=== PATIENT | female | born 1990 | race Caucasian/White ===

== ENCOUNTER → 2016-09-12 | Outpatient (CLI) | payer BC ==
[~2016-09-12] MED LIST: APRI28 PO; PRENTAB26 PO
== END | disposition home or self-care (01) ==
LOC: C.LAB1850 07:13
PROVIDERS: ATTEND Obstetrics & Gynecology
DX: O28.1 Abnormal biochemical finding on antenatal screening of mother (principal); Z3A.00 Weeks of gestation of pregnancy not specified

== ENCOUNTER → 2016-10-19 | Outpatient (CLI) | payer BC ==
[2016-10-19 13:36] LABS: BASO % 0.2 %; BASO ABS # 0.03 K/uL (0-0.2); COMPLETE YES; EOS % 0.5 %; HEMATOCRIT 32.9 % (37-47); IG% 0.4 %; LYMPH % 14.5 %; LYMPH ABS # 1.76 K/uL (1.2-3.4); MEAN CELL VOLUME 85.2 fL (80-100); MEAN CORPUSCULAR HEMOGLOBIN 28.2 pg (25-34); MEAN CORPUSCULAR HGB CONC 33.1 g/dl (32-36); MEAN PLATELET VOLUME 10.6 fL (7.4-10.4); MONO % 9.7 %; NEUT % 74.7 %; PLATELET COUNT 279 K/uL (130-400); RED BLOOD COUNT 3.86 M/uL (4.2-5.4); WHITE BLOOD COUNT 12.14 K/uL (4.8-10.8)
[2016-10-19 13:49] LABS: ALT/SGPT 12 U/L (12-78); AST/SGOT 8 U/L (15-37); CREATININE 0.64 mg/dl (0.60-1.20); URIC ACID 3.8 mg/dl (2.6-7.2)
== END | disposition home or self-care (01) ==
LOC: C.LAB1850 11:31
PROVIDERS: ATTEND Obstetrics & Gynecology
DX: O16.3 Unspecified maternal hypertension, third trimester (principal)

== ENCOUNTER → 2016-11-01 | Outpatient (CLI) | payer BC | END | disposition home or self-care (01) | LOC: C.LABSPEC 12:56 | PROVIDERS: ATTEND Obstetrics & Gynecology | DX: Z34.03 Encounter for supervision of normal first pregnancy, third trimester (principal) ==

== ENCOUNTER 2016-11-03 11:07 | Inpatient (IN) | payer BC ==
[~2016-11-03] VITALS: Ht 170.2 cm; Wt 90.5 kg
[~2016-11-03 11:07] MED LIST changes: -PRENTAB26 PO
[2016-11-03] MEDS ORDERED: LACTATED RINGER'S 1000ML 1,000 ML IV PRN (11:17)
[2016-11-03] MEDS ORDERED: MISOPROSTOL 25 MCG TAB PV ONE (11:30)
[2016-11-03 11:41] LABS: HEMATOCRIT 33.2 % (37-47); MEAN CELL VOLUME 84.3 fL (80-100); MEAN CORPUSCULAR HEMOGLOBIN 28.9 pg (25-34); MEAN CORPUSCULAR HGB CONC 34.3 g/dl (32-36); MEAN PLATELET VOLUME 10.3 fL (7.4-10.4); PLATELET COUNT 282 K/uL (130-400); RED BLOOD COUNT 3.94 M/uL (4.2-5.4); WHITE BLOOD COUNT 11.65 K/uL (4.8-10.8)
[2016-11-03 12:00] LABS: ALB/GLOB RATIO 0.7 (0.9-2); ALKALINE PHOSPHATASE 112 U/L (45-117); ALT/SGPT 14 U/L (12-78); AST/SGOT 15 U/L (15-37); BLOOD UREA NITROGEN 9 mg/dl (7-18); BUN/CREATININE RATIO 11.7 (10-20); CALCIUM 9.4 mg/dl (8.5-10.1); CARBON DIOXIDE 20 mmol/L (21-32); CHLORIDE 102 mmol/L (98-107); CREATININE 0.75 mg/dl (0.60-1.20); GLUCOSE 77 mg/dl (70-99); POTASSIUM 3.7 mmol/L (3.5-5.1); SODIUM 134 mmol/L (136-145)
[2016-11-03 13:13] VITALS: Ht 170.2 cm; Wt 90.5 kg
[2016-11-03] MEDS ORDERED: PRENTAB26 PO (13:18)
[2016-11-03] MEDS ORDERED: MISOPROSTOL 25 MCG TAB ONE (13:39)
[2016-11-03] MEDS: LACTATED RINGER'S 1000ML 1,000 ML IV SCH ×2 (16:59→21:12)
[2016-11-03] MEDS ORDERED: LACTATED RINGER'S 1000ML 500 ML IV PRN ×2 (17:30→21:38)
[2016-11-03] MEDS ORDERED: OXYTOCIN 30 UNITS/500ML NSS IV PRN (17:30)
[2016-11-03] MEDS ORDERED: BUPIVACAINE 0.25% 30 ML VIAL ONE (21:00)
[2016-11-03] MEDS ORDERED: FENTANYL 2MCG/ML ROPIV 1.25MG/ML 100ML BAG EPI ONE (21:01)
[2016-11-03] MEDS ORDERED: EpHEDrine SULFATE INJ 50 MG/ML AMP ONE (21:01)
[2016-11-03] MEDS ORDERED: FENTANYL CITRATE INJ 50 MCG/1 ML 2 ML VIAL ONE (21:01)
[2016-11-03] MEDS ORDERED: NALOXONE HCL INJ 1 MG in SODIUM CHLORIDE 0.9% 1000ML 1,000 ML IV PRN (21:38)
[2016-11-03] MEDS ORDERED: DiphenhydrAMINE HCL 50 MG/ML VIAL IV PRN (21:45)
[2016-11-03] MEDS ORDERED: ONDANSETRON INJ 2 MG/ML 2 ML VIAL IV PRN (21:45)
[2016-11-03] MEDS ORDERED: FENTANYL 2MCG/ML ROPIV 1.25MG/ML 100ML BAG EPI PRN (21:45)
[2016-11-03] MEDS ORDERED: EpHEDrine SULFATE INJ 50 MG/ML AMP IV PRN (21:45)
[2016-11-03] MEDS ORDERED: NALOXONE HCL INJ 0.4 MG/1 ML VIAL/CARP IV PRN (21:45)
[2016-11-03] MEDS ORDERED: NALBUPHINE HCL INJ 10 MG/ML AMP IV PRN (21:45)
[2016-11-04] MEDS ORDERED: LACTATED RINGER'S 1000ML 1,000 ML IV SCH (04:40)
[2016-11-04] MEDS ORDERED: SUPERCREAM 0.870 % 15GM JAR EXT PRN (04:45)
[2016-11-04] MEDS ORDERED: OXYTOCIN 30 UNITS/500ML NSS IV PRN (04:45)
[2016-11-04] MEDS ORDERED: DIPHTHERIA/TETANUS/PERTUSSIS 0.5 ML SYR/VIAL IM. ONE (04:45)
[2016-11-04] MEDS ORDERED: BENZOCAINE 20% AER SPR 82.5 GM CAN EXT PRN (04:45)
[2016-11-04] MEDS ORDERED: ACETAMINOPHEN/CODEINE 300/30MG TAB PO PRN ×2 (04:45)
[2016-11-04] MEDS ORDERED: HYDROCORTISONE ACETATE 25 MG SUPP PR PRN (04:45)
[2016-11-04] MEDS ORDERED: ACETAMINOPHEN 325 MG TAB PO PRN (04:45)
[2016-11-04] MEDS ORDERED: LANOLIN OINT EXT PRN ×2 (04:45)
--- NOTE | 2016-11-04 07:16 | DELIVERY SUMMARY ---
DATE OF OPERATION: 11/04/2016 VAGINAL DELIVERY NOTE DATE OF DELIVERY: 11/04/2016. PREOPERATIVE DIAGNOSES: 1. Frey intrauterine at 36-6/7 weeks. 2. Premature rupture of membranes. 3. Group B strep negative. POSTOPERATIVE DIAGNOSES: Same. PROCEDURE: Spontaneous vaginal delivery. SURGEON: Dr. Del Rio. ASSIST: None. ESTIMATED BLOOD LOSS: 400 mL. COMPLICATIONS: None. DISPOSITION: Stable in labor and delivery. DESCRIPTION: Stephanie is a who presented from the office after being confirmed for rupture of membranes via AmniSure. She was 36-5/7 weeks at that time. Her cervix was unfavorable and she was initially started with Cytotec and ultimately progressed to using Pitocin. She did get a 4 bag artificially ruptured for clear fluid and she was provided with an epidural for pain management. Her heart tones were intermittently category II, but always resolved to category I. She did reach complete dilation at 4 a.m. in the morning on 11/04/2016. She was close to pushing and I was called to the room for delivery. She delivered the head of the infant in the occiput anterior position, followed by the shoulders with no difficulty and the remainder of the baby thereafter. The was placed on the maternal abdomen where it made respiratory efforts to move all 4 extremities. The cord was doubly clamped and cut by the father of the baby, it was noted to have excessive [place]'s jelly. The placenta delivered spontaneously and was noted to be intact with a 3-vessel cord, it will be sent for examination, both due to early gestational age and excessive [place]'s jelly. The cervix, vagina and perineum were examined and found to have no lacerations requiring repair and at the current time the fundus was firm, lochia was minimal and patient and are both in stable condition having tolerated the delivery well. I attest to the content of the Intraoperative Record and any orders documented therein. Any exceptio ns are noted below.
--- NOTE | 2016-11-04 07:20 | Anesthesia Procedure Note ---
Anesthesia Epidural Removal Nt Date & Time Nov 04, 2016 at 07:20 Vital Signs Pain Intensity: 0.0 Notes Mental Status: alert / awake / arousable, participated in evaluation Nausea / Vomiting: adequately controlled Pain: adequately controlled Airway Patency, RR, SpO2: stable & adequate BP & HR: stable & adequate Hydration State: stable & adequate Neuraxial Anesthesia: was administered Anesthetic Complications: no major complications apparent, pt satisfied with anesthetic care Epidural: removed without complications, with tip intact
[2016-11-04 07:45] VITALS: BP 138/91; PULSE 97; TEMP 36.5; O2SAT 98
[2016-11-04] MEDS: FERROUS SULFATE 325 MG TAB PO SCH (08:04)
[2016-11-04] MEDS: PRENATAL VITAMIN TAB PO SCH (08:04)
[2016-11-04] MEDS: DOCUSATE SODIUM 100 MG CAP PO SCH ×2 (08:04→20:00)
[2016-11-04 12:00] VITALS: BP 146/91; PULSE 85; TEMP 36.5; O2SAT 99
[2016-11-04 15:45] VITALS: BP 156/93; PULSE 89; TEMP 36.7; O2SAT 99
[2016-11-04 19:30] VITALS: BP 138/81; PULSE 78; TEMP 36.7
[2016-11-04 21:06] LABS: CALCIUM 8.6 mg/dl (8.5-10.1); CREATININE 0.71 mg/dl (0.60-1.20); POTASSIUM 3.7 mmol/L (3.5-5.1); URIC ACID 4.4 mg/dl (2.6-7.2)
[2016-11-04 21:08] LABS: HEMATOCRIT 30.7 % (37-47); MEAN CELL VOLUME 83.7 fL (80-100); MEAN CORPUSCULAR HEMOGLOBIN 28.1 pg (25-34); MEAN PLATELET VOLUME 10.3 fL (7.4-10.4); PLATELET COUNT 226 K/uL (130-400); RED BLOOD COUNT 3.67 M/uL (4.2-5.4); WHITE BLOOD COUNT 17.02 K/uL (4.8-10.8)
[2016-11-04 21:09] LABS: ALB/GLOB RATIO 0.6 (0.9-2)
[2016-11-04 21:18] LABS: MEAN CORPUSCULAR HGB CONC 33.6 g/dl (32-36)
[2016-11-04 21:49] LABS: BASO % 0.2 %; BASO ABS # 0.03 K/uL (0-0.2); COMPLETE YES; EOS % 0.5 %; IG% 0.4 %; LYMPH % 13.1 %; LYMPH ABS # 2.23 K/uL (1.2-3.4); NEUT % 74.8 %
[2016-11-04 23:50] VITALS: BP 129/76; PULSE 83; TEMP 36.6
[2016-11-05 03:30] VITALS: BP 147/92; PULSE 75; TEMP 36.4
[2016-11-05] MEDS: IBUPROFEN 600 MG TAB PO PRN ×2 (03:39→15:32)
[2016-11-05 08:00] VITALS: BP 141/94; PULSE 80; TEMP 36.6; O2SAT 98
--- NOTE | 2016-11-05 08:31 | Progress Note ---
Subjective Nov 05, 2016. Subjective conversation w/ patient Ambulation: ambulating normally Voiding: no voiding problems Passing Gas: Yes Diet Tolerance: Regular Diet Lochia: Small Feeding Type: Breast Feeding Review of Systems Constitutional: No fever, No sweats Respiratory: No cough Cardiac: No chest pain Abdomen: No nausea, No pain, No vomiting Objective Vital Signs Date Time Temp Pulse Resp B/P Pulse Ox O2 Delivery O2 Flow Rate FiO2 11/05/16 03:30 36.4 75 18 147/92 Room Air 11/04/16 23:50 36.6 83 18 129/76 Room Air 11/04/16 23:50 Room Air 11/04/16 19:30 36.7 78 20 138/81 Room Air 11/04/16 15:45 Room Air 11/04/16 15:45 36.7 89 18 156/93 99 Room Air 11/04/16 12:00 36.5 85 20 146/91 99 Room Air Physical Exam General Appearance: WELL-APPEARING, NO APPARENT DISTRESS Respiratory/Chest: lungs clear, normal breath sounds Cardiovascular: regular rate, rhythm, no murmur Abdomen: normal bowel sounds, non tender Fundus: Firm, Non-Tender, Relation to Umbilicus (1 cm above) Extremities: non-tender, no calf tenderness Laboratory Results Last 24 Hours Test 11/04/16 20:32 11/05/16 07:50 White Blood Count 17.02 K/uL Red Blood Count 3.67 M/uL Hemoglobin 10.3 g/dL 10.8 g/dL Hematocrit 30.7 % 32.0 % Mean Corpuscular Volume 83.7 fL Mean Corpuscular Hemoglobin 28.1 pg Mean Corpuscular Hemoglobin Concent 33.6 g/dl Platelet Count 226 K/uL Mean Platelet Volume 10.3 fL Neutrophils (%) (Auto) 74.8 % Lymphocytes (%) (Auto) 13.1 % Monocytes (%) (Auto) 11.0 % Eosinophils (%) (Auto) 0.5 % Basophils (%) (Auto) 0.2 % Neutrophils # (Auto) 12.74 K/uL Lymphocytes # (Auto) 2.23 K/uL Monocytes # (Auto) 1.87 K/uL Eosinophils # (Auto) 0.08 K/uL Basophils # (Auto) 0.03 K/uL RDW Standard Deviation 44.3 fL RDW Coefficient of Variation 14.5 % Immature Granulocyte % (Auto) 0.4 % Immature Granulocyte # (Auto) 0.07 K/uL Red Blood Cell Morphology Unremarkable Sodium Level 138 mmol/L Potassium Level 3.7 mmol/L Chloride Level 105 mmol/L Carbon Dioxide Level 24 mmol/L Anion Gap 9.0 mmol/L Blood Urea Nitrogen 6 mg/dl Creatinine 0.71 mg/dl Est Creatinine Clear Calc Drug Dose 137.5 ml/min Estimated GFR () 135.3 Estimated GFR (Non- 116.7 BUN/Creatinine Ratio 8.0 Random Glucose 91 mg/dl Uric Acid 4.4 mg/dl Calcium Level 8.6 mg/dl Total Bilirubin 0.2 mg/dl Aspartate Amino Transf (AST/SGOT) 23 U/L Alanine Aminotransferase (ALT/SGPT) 15 U/L Alkaline Phosphatase 97 U/L Total Protein 6.0 gm/dl Albumin 2.3 gm/dl Globulin 3.7 gm/dl Albumin/Globulin Ratio 0.6 Assessment and Plan Problem List Medical Problems: (1) Elbow contusion Status: Acute Post- Day#: 1 Continue Routine Care: Resident Physician Supervision Note: I was present with [Name of resident] during the history and exam. I discussed the case with the resident and agree with the findings and plan as documented in the note. Any exceptions or clarifications are listed here: [None ] Documented By: Chary Jo s/p Day 1 - vital signs reviewed and blood pressure 147/92, will recheck this morning before discharge - CBC and CMP reviewed and wnl. no evidence of preeclampsia - Blood type: A-, GBS-. Rubella immune - Pt doing well clinically - Encourage ambulation, monitor and control pain with motrin prn, resume regular diet, monitor lochia - Encourage breast feeding - Pt counselled on discharge instructions - Will follow up for BP check in clinic in 1 week - PATIENT DISCHARGE TODAY Resident Physician Supervision Note: I was present with Dr. Puga during the history and exam. I discussed the case with the resident and agree with the findings and plan as documented in the note. Any exceptions or clarifications are listed here: PPD#1, feeling well , BP stable. PreE labs wnl. Will plan to discharge to home today. FU in office in 1 week for BP check. Then 6w PP visit. Discharge instructions discussed. Documented By: Chary Jo
--- NOTE | 2016-11-05 08:32 | Discharge Instructions ---
Discharge Instructions Admission Reason for Admission: R/O Rupture Of Membranes Discharge Discharge Diagnosis / Problem: Spontaneous Vaginal Delivery Discharge Goals Goal(s): Routine recovery after delivery Medications Continue Dispensed Medications: supercream, dermaplast, tucks, lansinoh Activity Recommendations Activity Limitations: per Instructions/Follow-up section . Instructions / Follow-Up Instructions / Follow-Up ACTIVITY RECOMMENDATIONS: * Gradual return to full activity over the next 2-3 weeks. * No lifting - nothing heavier than baby over the next 2-3 weeks. * Do not engage in vigorous exercise, sexual activity or sports until cleared by your physician. * Do not drive or operate any motorized equipment until cleared by your physician. * You may shower/bathe daily. MEDICATIONS: For discomfort or pain, you may use Acetaminophen (Tylenol), Ibuprofen (Advil), or Naproxen (Aleve) following the package directions. For constipation you may use Colace following the package directions. BREAST CARE: If you are not breast feeding: * Wear a supportive bra 24 hours a day for one to two weeks. * Avoid stimulating your breasts and nipples as much as possible during the first few weeks after delivery. * When taking a shower, have the warm water hit your back, not breasts. * When your breasts feel full, apply ice packs. Usually three to four times a day helps ease the discomfort. * Take a mild pain medication (Tylenol / Motrin) when you are uncomfortable. If breast feeding: * Use breast milk to lubricate nipples. Lansinoh cream may be used for sore nipples. You do not need to remove cream prior to breast feeding. If using a different brand of cream, check the label for directions regarding removal of cream prior to nursing. * Wear a supportive bra. * If having problems with breasts or breast feeding, call a retail wireless sales consultant or your health care provider. EPISIOTOMY CARE: After delivery, if you have an episiotomy (stitches), the following steps will ease discomfort and aid healing. * For the first 24 hours after delivery, place ice packs next to your episiotomy to help reduce swelling. * After the first 24 hour-period, sitz baths, either portable or in the tub, are suggested. A shower with a shower arm sprayed over the episiotomy may be comforting. * Rocio care should be done after each voiding and bowel movement. Squirt warm water from a plastic bottle over the perineum (region of the body between the anus and urinary opening) and pat dry. * Use Dermoplast to ease discomfort. Shake container. Jackson directly over the episiotomy. Place a Tucks on a clean sanitary pad next to your episiotomy. SPECIAL CARE INSTRUCTIONS: When you are discharged from the hospital, it is important for you to follow the instructions listed below: * During the first week at home, you should be able to care for yourself and your baby. In addition, the usual light household activities are encouraged. * Limit your activities to the way you feel. Do not try to clean the house or move furniture. Be sensible. * If you actively engage in sports and have done so up until the time of your delivery, you may resume these activities as soon as you feel able. This may take up to one month or even longer. Use good judgment. * Continue to take your vitamins for at least six weeks after the of your baby. * Your diet need not be limited unless you were on a special diet before your delivery. Breast-feeding mothers need around 2500 calories per day and at least 64-80 ounces of fluid per day (8 to 10 glasses). * You should eat foods from the four major food groups. Crash diets or fad diets are to be avoided. Eating lean meats, fresh fruits and vegetables, low-fat dairy products, high fiber foods and a regular exercise program, will help you get back to your pre- weight without putting your health at risk. * Constipation is sometimes a problem after delivery. Take a mild laxative as needed. If breast feeding, Milk of Magnesia is acceptable to use. You may use a suppository or Fleets enema if no episiotomy. * A daily shower or tub bath is suggested. Be sure to thoroughly and gently dry the perineum. * A bloody vaginal discharge will usually continue until around four weeks post . A small amount of bleeding may continue for as long as six weeks. Vaginal discharge changes from the bright red bleeding after delivery to pink then brownish and finally yellowish-pink before becoming white and disappearing. * Bleeding may increase with activity. Your first period may come in 4-8 weeks. If you are breast feeding, your period may be delayed even longer. * Schurz (sex) can begin whenever both you and your partner feel comfortable and do not have any form of genital infection. It is recommended that you wait at least six weeks for internal and external healing to occur. If you have questions, please talk to your health care practitioner. A condom should be used to prevent infection and . * Foreplay, gentle intercourse and lubrication is very important the first several times to prevent pain. A water-based lubricant such as K-Y jelly or Astroglide may be used. * If you have RH negative blood and your baby is RH positive, you will receive RHOGAM by injection prior to discharge. The nurse will give you a card to keep with you that has the date and place that you received RHOGAM after delivery. * During your care, you had a Rubella screen done to check for the presence of rubella antibodies in your blood. If your test was negative, you will receive a Rubella vaccine prior to discharge. This vaccine may cause a fever, soreness at the injection site and flu-like symptoms. If these symptoms persist, notify your health care practitioner. is not advised for one month after a Rubella vaccine. * Verbalizes understanding of car seat law as reviewed with patient nursing. * Car Seat hand-out given and reviewed with patient by nursing. * Shaken baby information reviewed with patient by nursing. Call you doctor if: * Heavy bleeding (saturating several pads an hour) or passing clots the size of your fist. * A fever >101 degrees F (38.3 degrees C) on two occasions four hours apart and /or chills. * Unusual pain in the pelvic or vaginal areas. * "Baby Blues" lasting longer than two weeks. If you have any questions or concerns, call your health care practitioner at . FOLLOW UP VISIT: * Please call the office at to schedule a 6 week examination. It is important you keep this appointment. It is important for you to make arrangements for either yearly or twice yearly check-ups thereafter. Current Hospital Diet Patient's current hospital diet: Regular OB Diet Discharge Diet Recommended Diet: Regular OB Diet Pending Studies Studies pending at discharge: no Medical Emergencies . Who to Call and When: Medical Emergencies: If at any time you feel your situation is an emergency, please call 911 immediately. . Non-Emergent Contact Non-Emergency issues call your: Primary Care Provider, [employer] Winder . . "Provider Documentation" section prepared by Kei Puga. VTE Core Measure Inpt VTE Proph given/why not?: Treatment not indicated
[2016-11-05] MEDS: DOCUSATE SODIUM 100 MG CAP PO SCH ×2 (08:46→20:33)
[2016-11-05] MEDS: PRENATAL VITAMIN TAB PO SCH (08:46)
[2016-11-05] MEDS: FERROUS SULFATE 325 MG TAB PO SCH (08:46)
[2016-11-05 11:46] VITALS: BP_SYST 126; BP_SYST 129; BP_DIAS 60; BP_DIAS 80; PULSE 83; TEMP 36.4; O2SAT 99
[2016-11-05 15:30] VITALS: BP 143/82; PULSE 80; TEMP 36.5
[2016-11-05 19:27] VITALS: BP 131/83
[2016-11-05 23:40] VITALS: BP 112/71; PULSE 73; TEMP 36.7
[2016-11-06 07:45] VITALS: BP 137/84; PULSE 75; TEMP 36.5; O2SAT 99
[2016-11-06] MEDS: FERROUS SULFATE 325 MG TAB PO SCH (08:21)
[2016-11-06] MEDS: DOCUSATE SODIUM 100 MG CAP PO SCH (08:21)
[2016-11-06] MEDS: PRENATAL VITAMIN TAB PO SCH (08:21)
--- NOTE | 2016-11-06 09:49 | Progress Note ---
Subjective Nov 06, 2016. Subjective conversation w/ patient, physical exam Ambulation: ambulating normally Voiding: no voiding problems Diet Tolerance: Regular Diet Lochia: Small Feeding Type: Bottle Feeding Pain: denies pain issues Objective Vital Signs Date Time Temp Pulse Resp B/P Pulse Ox O2 Delivery O2 Flow Rate FiO2 11/06/16 07:45 36.5 75 20 137/84 99 Room Air 11/05/16 23:40 36.7 73 16 112/71 Room Air 11/05/16 23:40 Room Air 11/05/16 19:27 131/83 11/05/16 15:30 36.5 80 20 143/82 Room Air 11/05/16 15:30 Room Air 11/05/16 11:46 36.4 83 18 126/80 99 Room Air Physical Exam General Appearance: WELL-APPEARING, NO APPARENT DISTRESS Respiratory/Chest: lungs clear Cardiovascular: regular rate, rhythm Abdomen: non tender, soft Fundus: Firm, Relation to Umbilicus (2 down) Extremities: non-tender Assessment and Plan Problem List Medical Problems: (1) Elbow contusion Status: Acute Post- Day#: 2 Continue Routine Care: stable, ready for d/c home, instructions reveiwed. plan 6wk pp check.
[2016-11-06 11:15] VITALS: BP_DIAS 84; PULSE 75; TEMP 36.5
== END 2016-11-06 11:10 | disposition home or self-care (01) | DRG 775 ==
LOC: C.LD 11:07 → C.OPB 11:07 → C.LD 11:18 → C.OBG 11-04 07:03 → EDSTATUS 11-26 11:08
PROVIDERS: ADMIT Obstetrics & Gynecology; ATTEND Obstetrics & Gynecology
PROC: 3E0P7GC Introduction of Other Therapeutic Substance into Female Reproductive, Via Natural or Artificial Opening (ICD-10-PCS; principal; 2016-11-04)
PROC: 10E0XZZ Delivery of Products of Conception, External Approach (ICD-10-PCS; principal; 2016-11-04)
DX: O42.913 Preterm premature rupture of membranes, unspecified as to length of time between rupture and onset of labor, third trimester (principal); O69.89X0 Labor and delivery complicated by other cord complications, not applicable or unspecified; O76 Abnormality in fetal heart rate and rhythm complicating labor and delivery; O99.02 Anemia complicating childbirth; D64.9 Anemia, unspecified; Z37.0 Single live birth; Z3A.36 36 weeks gestation of pregnancy

== ENCOUNTER → 2016-11-03 | Outpatient (CLI) | payer BC ==
[2016-11-03 10:40] LABS: AMNIS INTERNAL NEGATIVE QC NEG CLEAR BACKGROUND; AMNIS INTERNAL POSITIVE QC POS CONTROL LINE
[2016-11-03 10:41] LABS: AMNISURE POS
== END | disposition home or self-care (01) ==
LOC: C.LABSPEC 10:13
PROVIDERS: ATTEND Obstetrics & Gynecology
DX: N89.8 Other specified noninflammatory disorders of vagina (principal)

== ENCOUNTER 2021-06-06 08:45 | Inpatient (IN) ==
--- NOTE | 2021-06-06 09:10 | Obstetrical Progress Note ---
Date of Service June 06, 2021 Assessment & Plan (1) Elevated blood pressure affecting in third trimester, antepartum: Plan: no evidence of rupture or labor presently. Her first blood pressure was taken just after her speculum exam and it was very uncomfortable for her. PLan repeat blood pressures and labs. Has no s/s of pet. Subjective Patient is a 30yowf who presents at 37 4/7 weeks with ?rom. Patient notes for two days she has been wiping and noting what sounds like mucous and she describes hair in it that is not hers, ? baby hair? She notes no vb. NO significant contractions. +fm. Patient had an elevated blood pressure in the office recentl at 35 week visit. no s/s pet . nl 24 hour urine. Pressures at her subsequent visits have been normal. Physical Exam Physical Exam: sse--neg f/n/p sve--/50/-2 toco--mics efm--140s with mod variability, accels to 160s, no decels Constitutional: WD/WN, vitals as above Results & Data ([facility]) Vital Signs (Past 12 Hours) Vital Signs Temp Pulse Resp BP 06/06/21 08:56 36.9 C 93 H 18 159/91 H PG Care Time/CCT Total # of Minutes Spent Total Time Spent with Patient: Total time spent is greater than 50% in coordination of care (as documented) at patient's floor/unit and/or counseling patient: Coding Level of Care Code 56218 Office/Outpt Visit, Est Diagnoses Elevated blood pressure affecting in third trimester, antepartum O16.3
[2021-06-06 09:24] LABS: Hematocrit (blood only) 34.1 % (37-47); Mean Corpuscular Hemoglobin 28.3 pg (25-34); Mean Corpuscular Hgb Conc 32.3 g/dL (32-36); Mean Corpuscular Volume 87.7 fL (80-100); Mean Platelet Volume 9.7 fL (7.4-10.4); Platelet Count 301 K/uL (130-400); RDW Coefficient of Variation 15.5 % (11.5-14.5); RDW Standard Deviation 49.4 fL (36.4-46.3); Red Blood Count 3.89 M/uL (4.2-5.4)
[2021-06-06 09:52] LABS: Basophils # (auto) 0.01 K/uL (0-0.2); Basophils % (auto) 0.1 %; Eosinophils # (auto) 0.04 K/uL (0-0.5); Eosinophils % (auto) 0.4 %; Immature Granulocytes # (auto) 0.07 K/uL (0.00-0.02); Immature Granulocytes % (auto) 0.6 %; Lymphocytes % (auto) 14.3 %; Monocytes # (auto) 0.76 K/uL (0.11-0.59); Monocytes % (auto) 6.8 %; Neutrophils # (auto) 8.72 K/uL (1.4-6.5); Neutrophils % (auto) 77.8 %
[2021-06-06 09:56] LABS: Albumin Level 2.6 gm/dl (3.4-5.0); BUN Creatinine Ratio 9.2 (10-20); Calcium 8.5 mg/dl (8.5-10.1); Creatinine Clr Calc Pharmacy 120.3 ml/min; Est GFR (African American) 109.7 ml/min; Est GFR (Non-African American) 94.7 ml/min; Potassium 3.9 mmol/L (3.5-5.1)
[2021-06-06 09:59] LABS: Albumin Globulin Ratio 0.7 (0.9-2); Bilirubin,Total 0.2 mg/dl (0.2-1); Globulin 3.8 gm/dl (2.5-4.0); Total Protein 6.4 gm/dl (6.4-8.2)
[2021-06-06] MEDS ORDERED: OXYTOCIN 30 UNITS/500 ML BAG IV PRN ×3 (10:58→22:20)
--- NOTE | 2021-06-06 13:28 | History & Physical Report ---
Date of Service June 06, 2021 Assessment & Plan (1) Gestational hypertension without significant proteinuria during in third trimester, antepartum: (2) with 37 weeks completed gestation: Plan: Patient has fulfilled the criteria for ghtn and as she is greater than 37 weeks, plan induction of labor. labs nl. fetus category one. alejo bulb placed. Will then probably need pitocin and arom. Patient and fob express understanding. anticipate . Admission and Anticipated Discharge Date Admission Date: June 06, 2021 History of Present Illness Chief Complaint: ghtn Primary Care Provider: Mark Anthony Cerda MD Patient is a 30yowf with iup at 37 4/7 weeks who presented to labor and delivery for ? rom. However, on evaluation, pressures elevated up to 160s/101. At 35 weeks, patient had elevated blood pressures of 140s/100. She therefore fulfills the qualification for ghtn and as she is greater than 37 weeks, I recommend induction of labor. She notes understanding of this. Notes no s/s of pet. has been otherwise uncomplicated. labs--A-/ab-/ri/rprnr/hepb-/hiv neg/gbs neg/gc/ct neg Allergies Allergy/AdvReac Type Severity Reaction Status Date / Time No Known Allergies Allergy Verified 06/02/21 10:31 Home Medications Medication Instructions Recorded Confirmed Type acetaminophen 500 mg tablet 1,000 mg PO UD PRN 02/24/19 06/02/21 History (Tylenol Extra Strength) prenat.vits,girish,[id number] 1 tab PO DAILY 11/30/20 06/06/21 History polysaccharide iron complex 150 mg 150 mg PO DAILY #30 cap 03/31/21 06/06/21 Rx iron capsule (iFerex 150) Patient History Medical History Elevated blood pressure reading History of chicken pox Migraine Surgical History S/P wisdom tooth extraction Family History Other No significant family history Denies family history of Ovarian cancer Breast cancer Colorectal cancer Social History Smoking Status: Former smoker Hx Alcohol Use: No Hx Substance Use: No Preferred Language: Sinhala Communication Ability: Effective Contract Associate Required: No Beliefs That Will Affect Care: None marital status: marital status details: Torsten Martines [phone]) [phone] Current Living Situation: Spouse Current Living Situation Comment: lives with spouse, son, dog, cats-spouse changing litter current occupational status: employed current occupation: [employer] Other Information That Helps Us Care for You: No Feels Safe at Home: Yes Safety Concerns: Feels Safe At This Time Assistive Devices: None OB History g1--10/2016, 36 week srom, Physical Exam Constitutional: WD/WN, vitals as above Cardiovascular: Extremities: no calf tenderness and no edema Gastrointestinal (Abdomen): soft, nt, gravid Neurologic: patellar DTR's 2+ bilat, sensation intact Psychiatric: A+Ox3, euthymic affect alejo bulb placed under direct visualization with speculum toco--q2-4 min, not really feeling efm--130s with mod variability, accels to 150s, no decels Results & Data ([facility]) Vital Signs (Past 12 Hours) Vital Signs Temp Pulse Resp BP 06/06/21 13:01 86 127/78 06/06/21 12:13 80 132/80 06/06/21 11:58 80 131/85 06/06/21 11:42 71 131/77 06/06/21 11:28 98 H 139/95 06/06/21 11:12 95 H 141/101 H 06/06/21 10:57 85 144/90 H 06/06/21 10:42 93 H 164/88 H 06/06/21 10:37 98 H 157/102 H 06/06/21 10:27 88 141/87 H 06/06/21 10:12 91 H 137/91 06/06/21 09:58 88 144/94 H 06/06/21 09:44 85 144/90 H 06/06/21 09:28 104 H 144/101 H 06/06/21 09:12 112 H 144/97 H 06/06/21 09:05 36.9 C 18 06/06/21 08:56 36.9 C 93 H 18 159/91 H Coding Level of Care Code None Diagnoses Gestational hypertension without significant proteinuria during in third trimester, antepartum O13.3 with 37 weeks completed gestation Z3A.37
[2021-06-06] MEDS ORDERED: BUPIVACAINE 0.25% 30 ML VIAL ONE ×2 (14:31→21:02)
[2021-06-06] MEDS ORDERED: SODIUM CHLORIDE 0.9% INJ 10 ML VIAL ONE ×2 (14:31→21:02)
[2021-06-06] MEDS ORDERED: ePHEDrine sulfate 50 MG/ML AMP ONE (14:31)
[2021-06-06] MEDS ORDERED: fentaNYL citrate 100 MCG/2 ML VIAL ONE (14:31)
[2021-06-06] MEDS ORDERED: fentaNYL 2MCG/ML ROPIVACAINE 1.25MG/ML 100 ML BAG EPI ONE (14:32)
[2021-06-06] MEDS: LACTATED RINGER'S 1,000 ML IV PRN ×3 (14:45→21:32)
--- NOTE | 2021-06-06 15:07 | Anesthesiology Consultation ---
Date of Service June 06, 2021 Assessment & Plan (1) Encounter for pre-operative examination: History Height/Weight Height: 5 ft 8 in Weight: 97.522 kg Allergies Allergy/AdvReac Type Severity Reaction Status Date / Time No Known Allergies Allergy Verified 06/02/21 10:31 Medications Home Medications Medication Instructions Recorded Confirmed Last Taken acetaminophen 500 mg tablet 1,000 mg PO UD PRN 02/24/19 06/02/21 02/24/19 07:15 (Tylenol Extra Strength) prenat.vits,girish,[id number]-bwkjk 1 tab PO DAILY 11/30/20 06/06/21 06/05/21 polysaccharide iron complex 150 mg 150 mg PO DAILY #30 cap 03/31/21 06/06/21 06/04/21 iron capsule (iFerex 150) Active Medications Generic Name Dose Route Start Last Admin Trade Name Freq PRN Reason Stop Dose Admin Lactated Ringer's 1,000 mls @ 125 mls/hr 06/06/21 10:58 06/06/21 14:45 Lr IV 06/08/21 10:57 999 mls/hr .Q8H PRN Administration L&D Protocol Protocol Past Medical History Medical History Elevated blood pressure reading History of chicken pox Migraine Past Family History Family History Other No significant family history Denies family history of Ovarian cancer Breast cancer Colorectal cancer Past Surgical History Surgical History S/P wisdom tooth extraction Social History Smoking Status: Former smoker Hx Alcohol Use: No Hx Substance Use: No Physical Exam Vital Signs Last Vital Signs Temp 36.9 C 06/06/21 09:05 Pulse 86 06/06/21 14:59 Resp 18 06/06/21 09:05 BP 135/106 H 06/06/21 14:49 Pulse Ox 98 06/06/21 14:59 Testing Laboratory Results 06/06/21 09:11 06/06/21 09:11
--- NOTE | 2021-06-06 17:10 | Labor Progress Brief Note ---
Date of Service June 06, 2021 Subjective comfortable with epidural Assessment & Plan (1) with 37 weeks completed gestation: (2) Gestational hypertension without significant proteinuria during in third trimester, antepartum: Plan: Continue current management. pitocin if indicated, fetus category one. Admission and Anticipated Discharge Date Admission Date: June 06, 2021 Physical Exam Physical Exam: balloon removed cx--4-5/80/-2 arom clear toco--q2-3min efm--130s wtih mod variability, accels to 150s, one variable since arom Results & Data ([facility]) Vital Signs (Past 12 Hours) Vital Signs Temp Pulse Resp BP Pulse Ox 06/06/21 17:04 95 H 100 06/06/21 16:59 111 H 100 06/06/21 16:54 110 H 99 06/06/21 16:53 100 H 142/83 H 06/06/21 16:49 103 H 100 06/06/21 16:44 106 H 100 06/06/21 16:39 102 H 100 06/06/21 16:38 113 H 144/81 H 06/06/21 16:34 102 H 100 06/06/21 16:29 113 H 99 06/06/21 16:24 101 H 100 06/06/21 16:23 113 H 141/73 H 06/06/21 16:19 98 H 100 06/06/21 16:14 99 H 99 06/06/21 16:09 112 H 100 06/06/21 16:07 105 H 149/85 H 06/06/21 16:04 107 H 100 06/06/21 16:03 105 H 140/94 06/06/21 15:59 101 H 100 06/06/21 15:57 109 H 145/89 H 06/06/21 15:55 112 H 139/77 06/06/21 15:54 116 H 100 06/06/21 15:53 113 H 140/71 06/06/21 15:51 108 H 141/84 H 06/06/21 15:49 98 H 134/79 100 06/06/21 15:47 107 H 127/84 06/06/21 15:45 102 H 126/80 06/06/21 15:44 102 H 100 06/06/21 15:43 105 H 126/75 06/06/21 15:41 100 H 122/75 06/06/21 15:39 99 H 142/71 H 100 06/06/21 15:37 106 H 144/65 H 06/06/21 15:35 101 H 140/75 06/06/21 15:34 101 H 99 06/06/21 15:33 96 H 122/68 06/06/21 15:30 83 94/47 L 06/06/21 15:29 87 100 06/06/21 15:26 97 H 129/72 06/06/21 15:24 104 H 99 06/06/21 15:19 100 H 100 06/06/21 15:14 96 H 100 06/06/21 15:09 90 99 06/06/21 15:07 36.5 C 20 06/06/21 15:06 90 176/81 H 06/06/21 15:04 86 100 06/06/21 14:59 86 98 06/06/21 14:54 84 99 06/06/21 14:49 86 135/106 H 100 06/06/21 13:01 86 127/78 06/06/21 12:13 80 132/80 06/06/21 11:58 80 131/85 06/06/21 11:42 71 131/77 06/06/21 11:28 98 H 139/95 06/06/21 11:12 95 H 141/101 H 06/06/21 10:57 85 144/90 H 06/06/21 10:42 93 H 164/88 H 06/06/21 10:37 98 H 157/102 H 06/06/21 10:27 88 141/87 H 06/06/21 10:12 91 H 137/91 06/06/21 09:58 88 144/94 H 06/06/21 09:44 85 144/90 H 06/06/21 09:28 104 H 144/101 H 06/06/21 09:12 112 H 144/97 H 06/06/21 09:05 36.9 C 18 06/06/21 08:56 36.9 C 93 H 18 159/91 H Coding Level of Care Code None Diagnoses with 37 weeks completed gestation Z3A.37 Gestational hypertension without significant proteinuria during in third trimester, antepartum O13.3
[2021-06-06] MEDS ORDERED: NALOXONE HCL 0.4 MG/1 ML VIAL/CARP IV PRN (17:20)
[2021-06-06] MEDS ORDERED: ePHEDrine sulfate 50 MG/ML AMP IV PRN (17:20)
[2021-06-06] MEDS ORDERED: diphenhydrAMINE 50 MG/ML VIAL IV PRN (17:20)
[2021-06-06] MEDS ORDERED: fentaNYL 2MCG/ML ROPIVACAINE 1.25MG/ML 100 ML BAG EPI PRN ×2 (17:20→21:14)
[2021-06-06] MEDS ORDERED: NALBUPHINE HCL INJ 10 MG/ML AMP IV PRN (17:20)
[2021-06-06] MEDS ORDERED: NALOXONE HCL 1 MG in SODIUM CHLORIDE 0.9% 1000ML 1,000 ML IV PRN (17:20)
[2021-06-06] MEDS ORDERED: ONDANSETRON INJ 2 MG/ML 2 ML VIAL IV PRN (17:20)
--- NOTE | 2021-06-06 18:38 | Labor Progress Brief Note ---
Date of Service June 06, 2021 Subjective comfortable Assessment & Plan (1) with 37 weeks completed gestation: (2) Gestational hypertension without significant proteinuria during in third trimester, antepartum: Plan: pressures stable and good. start pitocin. fetus category one. Admission and Anticipated Discharge Date Admission Date: June 06, 2021 Physical Exam Physical Exam: cx--unchanged toco--q3-5min efm--130s wtih mod variability, accels to 150s, no decels Results & Data ([facility]) Vital Signs (Past 12 Hours) Vital Signs Temp Pulse Resp BP Pulse Ox 06/06/21 18:34 114 H 100 06/06/21 18:29 97 H 98 06/06/21 18:24 107 H 132/80 98 06/06/21 18:19 98 H 98 06/06/21 18:14 98 H 99 06/06/21 18:09 93 H 141/83 H 100 06/06/21 18:04 94 H 99 06/06/21 17:59 90 100 06/06/21 17:55 84 18 112/61 06/06/21 17:54 84 100 06/06/21 17:49 90 100 06/06/21 17:44 88 100 06/06/21 17:39 88 118/61 100 06/06/21 17:34 86 100 06/06/21 17:29 89 100 06/06/21 17:24 87 115/59 L 100 06/06/21 17:19 106 H 100 06/06/21 17:14 102 H 100 06/06/21 17:09 101 H 110/55 L 100 06/06/21 17:04 95 H 100 06/06/21 17:02 36.7 C 20 06/06/21 16:59 111 H 100 06/06/21 16:54 110 H 99 06/06/21 16:53 100 H 142/83 H 06/06/21 16:49 103 H 100 06/06/21 16:44 106 H 100 06/06/21 16:39 102 H 100 06/06/21 16:38 113 H 144/81 H 06/06/21 16:34 102 H 100 06/06/21 16:29 113 H 99 06/06/21 16:24 101 H 100 06/06/21 16:23 113 H 141/73 H 06/06/21 16:19 98 H 100 06/06/21 16:14 99 H 99 06/06/21 16:09 112 H 100 06/06/21 16:07 105 H 149/85 H 06/06/21 16:04 107 H 100 06/06/21 16:03 105 H 140/94 06/06/21 15:59 101 H 100 06/06/21 15:57 109 H 145/89 H 06/06/21 15:55 112 H 139/77 06/06/21 15:54 116 H 100 06/06/21 15:53 113 H 140/71 06/06/21 15:51 108 H 141/84 H 06/06/21 15:49 98 H 134/79 100 06/06/21 15:47 107 H 127/84 06/06/21 15:45 102 H 126/80 06/06/21 15:44 102 H 100 06/06/21 15:43 105 H 126/75 06/06/21 15:41 100 H 122/75 06/06/21 15:39 99 H 142/71 H 100 06/06/21 15:37 106 H 144/65 H 06/06/21 15:35 101 H 140/75 06/06/21 15:34 101 H 99 06/06/21 15:33 96 H 122/68 06/06/21 15:30 83 94/47 L 06/06/21 15:29 87 100 06/06/21 15:26 97 H 129/72 06/06/21 15:24 104 H 99 06/06/21 15:19 100 H 100 06/06/21 15:14 96 H 100 06/06/21 15:09 90 99 06/06/21 15:07 36.5 C 20 06/06/21 15:06 90 176/81 H 06/06/21 15:04 86 100 06/06/21 14:59 86 98 06/06/21 14:54 84 99 06/06/21 14:49 86 135/106 H 100 06/06/21 13:01 86 127/78 06/06/21 12:13 80 132/80 06/06/21 11:58 80 131/85 06/06/21 11:42 71 131/77 06/06/21 11:28 98 H 139/95 06/06/21 11:12 95 H 141/101 H 06/06/21 10:57 85 144/90 H 06/06/21 10:42 93 H 164/88 H 06/06/21 10:37 98 H 157/102 H 06/06/21 10:27 88 141/87 H 06/06/21 10:12 91 H 137/91 06/06/21 09:58 88 144/94 H 06/06/21 09:44 85 144/90 H 06/06/21 09:28 104 H 144/101 H 06/06/21 09:12 112 H 144/97 H 06/06/21 09:05 36.9 C 18 06/06/21 08:56 36.9 C 93 H 18 159/91 H Coding Level of Care Code None Diagnoses with 37 weeks completed gestation Z3A.37 Gestational hypertension without significant proteinuria during in third trimester, antepartum O13.3
--- NOTE | 2021-06-06 20:34 | Labor Progress Brief Note ---
Date of Service June 06, 2021 Subjective getting more uncomfortable Assessment & Plan (1) with 37 weeks completed gestation: (2) Elevated blood pressure affecting in third trimester, antepartum: Plan: Starting to make some cervical change. fetus category 2 but reassuring. Hopefully going to go. Recheck in one hour. Admission and Anticipated Discharge Date Admission Date: June 06, 2021 Physical Exam Physical Exam: cx--6-7/100/-2 toco--q3-4, pit at 3 efm--130s with mod variability, accels presents, occasional variable Results & Data ([facility]) Vital Signs (Past 12 Hours) Vital Signs Temp Pulse Resp BP Pulse Ox 06/06/21 20:29 101 H 06/06/21 20:24 95 H 134/76 100 06/06/21 20:19 94 H 100 06/06/21 20:14 98 H 100 06/06/21 20:09 94 H 139/83 100 06/06/21 20:04 94 H 99 06/06/21 19:59 100 H 100 06/06/21 19:54 88 132/82 98 06/06/21 19:49 90 100 06/06/21 19:44 102 H 99 06/06/21 19:40 87 133/80 06/06/21 19:39 99 H 99 06/06/21 19:34 88 98 06/06/21 19:29 92 H 98 06/06/21 19:24 86 128/78 100 06/06/21 19:19 84 100 06/06/21 19:14 85 99 06/06/21 19:09 80 124/58 L 99 06/06/21 19:04 104 H 91 06/06/21 19:00 36.7 C 20 06/06/21 18:59 84 99 06/06/21 18:54 96 H 99 06/06/21 18:53 89 115/65 06/06/21 18:49 97 H 99 06/06/21 18:44 98 H 99 06/06/21 18:39 102 H 100 06/06/21 18:38 96 H 143/85 H 06/06/21 18:34 114 H 100 06/06/21 18:29 97 H 98 06/06/21 18:24 107 H 132/80 98 06/06/21 18:19 98 H 98 06/06/21 18:14 98 H 99 06/06/21 18:09 93 H 141/83 H 100 06/06/21 18:04 94 H 99 06/06/21 17:59 90 100 06/06/21 17:55 84 18 112/61 06/06/21 17:54 84 100 06/06/21 17:49 90 100 06/06/21 17:44 88 100 06/06/21 17:39 88 118/61 100 06/06/21 17:34 86 100 06/06/21 17:29 89 100 06/06/21 17:24 87 115/59 L 100 06/06/21 17:19 106 H 100 06/06/21 17:14 102 H 100 06/06/21 17:09 101 H 110/55 L 100 06/06/21 17:04 95 H 100 06/06/21 17:02 36.7 C 20 06/06/21 16:59 111 H 100 06/06/21 16:54 110 H 99 06/06/21 16:53 100 H 142/83 H 06/06/21 16:49 103 H 100 06/06/21 16:44 106 H 100 06/06/21 16:39 102 H 100 06/06/21 16:38 113 H 144/81 H 06/06/21 16:34 102 H 100 06/06/21 16:29 113 H 99 06/06/21 16:24 101 H 100 06/06/21 16:23 113 H 141/73 H 06/06/21 16:19 98 H 100 06/06/21 16:14 99 H 99 06/06/21 16:09 112 H 100 06/06/21 16:07 105 H 149/85 H 06/06/21 16:04 107 H 100 06/06/21 16:03 105 H 140/94 06/06/21 15:59 101 H 100 06/06/21 15:57 109 H 145/89 H 06/06/21 15:55 112 H 139/77 06/06/21 15:54 116 H 100 06/06/21 15:53 113 H 140/71 06/06/21 15:51 108 H 141/84 H 06/06/21 15:49 98 H 134/79 100 06/06/21 15:47 107 H 127/84 09/26/21 15:45 102 H 126/80 06/06/21 15:44 102 H 100 06/06/21 15:43 105 H 126/75 06/06/21 15:41 100 H 122/75 06/06/21 15:39 99 H 142/71 H 100 06/06/21 15:37 106 H 144/65 H 06/06/21 15:35 101 H 140/75 06/06/21 15:34 101 H 99 06/06/21 15:33 96 H 122/68 06/06/21 15:30 83 94/47 L 06/06/21 15:29 87 100 06/06/21 15:26 97 H 129/72 06/06/21 15:24 104 H 99 06/06/21 15:19 100 H 100 06/06/21 15:14 96 H 100 06/06/21 15:09 90 99 06/06/21 15:07 36.5 C 20 06/06/21 15:06 90 176/81 H 06/06/21 15:04 86 100 06/06/21 14:59 86 98 06/06/21 14:54 84 99 06/06/21 14:49 86 135/106 H 100 06/06/21 13:01 86 127/78 06/06/21 12:13 80 132/80 06/06/21 11:58 80 131/85 06/06/21 11:42 71 131/77 06/06/21 11:28 98 H 139/95 06/06/21 11:12 95 H 141/101 H 06/06/21 10:57 85 144/90 H 06/06/21 10:42 93 H 164/88 H 06/06/21 10:37 98 H 157/102 H 06/06/21 10:27 88 141/87 H 06/06/21 10:12 91 H 137/91 06/06/21 09:58 88 144/94 H 06/06/21 09:44 85 144/90 H 06/06/21 09:28 104 H 144/101 H 06/06/21 09:12 112 H 144/97 H 06/06/21 09:05 36.9 C 18 06/06/21 08:56 36.9 C 93 H 18 159/91 H Coding Level of Care Code None Diagnoses with 37 weeks completed gestation Z3A.37 Elevated blood pressure affecting in third trimester, antepartum O16.3
[2021-06-06] MEDS ORDERED: oxyCODONE/ACETAMINOPHEN 5mg/325mg TAB PO PRN (22:20)
[2021-06-06] MEDS ORDERED: BENZOCAINE 20% AER SPR 82.5 GM CAN EXT PRN (22:20)
[2021-06-06] MEDS ORDERED: bisacodyL 10 MG SUPP PR PRN (22:20)
[2021-06-06] MEDS ORDERED: ACETAMINOPHEN 325 MG TAB PO PRN (22:20)
[2021-06-06] MEDS ORDERED: SUPERCREAM 0.870% 15 GM JAR EXT PRN (22:20)
[2021-06-06] MEDS ORDERED: DIPHTHERIA/TETANUS/PERTUSSIS 0.5 ML SYR/VIAL IM ONE (22:20)
[2021-06-06] MEDS ORDERED: HYDROCORTISONE ACETATE 25 MG SUPP PR PRN (22:20)
--- NOTE | 2021-06-06 22:23 | Delivery Summary ---
Vaginal Delivery Summary Date of Service June 06, 2021 Vaginal Delivery Summary [facility] Pre-operative Diagnosis: at 37 4/7 tn Post-operative Diagnosis: same Procedure: alejo for cervical ripening arom pitocin augmentation [facility] EBL: 300cc Anesthesia: epidural Procedure: The patient presented for concern for rupture. Was not ruptured but had elevated blood pressures fulfilling the criteria for gthn and was induced. Alejo placed, started spon contractions. removed and arom for clear fluid. progressed with pitocin augmentation to c/c/+2. The patient pushed for 10 minutes to deliver a viable male infant in minal position. The nose and mouth were bulb suctioned on the perineum and the rest of the was then delivered without difficulty. The baby was vigorous. The nose and mouth were again bulb suctioned and the infant was placed in the maternal abdomen for drying and attention. Cord was clamped and cut at one minute of life. Cord blood and segment obtained. Placenta delivered spontaneous, intact with a three vessel cord. Cervix/sulci/rectum/perinaum were intact. Hemostasis obtained with dilute pitocin and fundal massage. Apgars were 8/9. Mother and baby doing well at the end of the delivery. MNP Vaginal Delivery Charge Delivery Type Details: [facility]
--- NOTE | 2021-06-06 23:01 | Anesthesia Procedure Note ---
Date of Service June 06, 2021 Anesthesia Post Epidural Note Vital Signs Vital Signs: Temp Pulse Resp BP Pulse Ox 36.7 C 104 H 18 147/72 H 100 06/06/21 20:40 06/06/21 22:59 06/06/21 22:45 06/06/21 22:59 06/06/21 21:59 Pain Intensity Bilateral Abdomen: Pain Intensity: 0 Notes Mental Status: alert / awake / arousable Nausea / Vomiting: adequately controlled Pain: adequately controlled Airway Patency, RR, SpO2: stable & adequate BP & HR: stable & adequate Hydration State: stable & adequate Neuraxial Anesthesia: was administered and sensory block is resolving Anesthetic Complications: no major complications apparent and Pt Satisfied with anesthetic care Epidural: Removed without complications and With tip intact
[2021-06-07] MEDS: IBUPROFEN 600 MG TAB PO PRN ×2 (04:26→20:18)
[2021-06-07 06:46] LABS: Hematocrit (blood only) 30.2 % (37-47); Hemoglobin 9.9 g/dL (12.0-16.0)
[2021-06-07] MEDS: DOCUSATE SODIUM 100 MG CAP PO SCH ×2 (07:19→20:18)
[2021-06-07] MEDS: PRENATAL VITAMIN 1 TAB PO SCH (07:19)
--- NOTE | 2021-06-07 08:31 | Obstetrical Progress Note ---
Date of Service <Shawn White DO - Last Filed: 06/07/21 08:31> June 07, 2021 Assessment & Plan <Shawn White DO - Last Filed: 06/07/21 08:31> (1) Encounter for care and examination after delivery: 30 yo PPD 1 s/p at 37weeks -Continue routine care; staying today to monitor pressures. -Vitals reviewed- HDS, afebrile -A-, GBS, Rubella immune; Rhogam on 03/31/21 -Encouraged ambulation, regular diet -Pain control with ibuprofen, acetaminophen PRN -Currently bottle feeding without complication -F/u in 6 weeks with OB <Bozena Villanueva MD, FACOG - Last Filed: 06/07/21 08:44> (1) Encounter for care and examination after delivery: Subjective <Shanw White DO - Last Filed: 06/07/21 08:31> Ambulation: ambulating normally Voiding: no voiding problems Passing Gas:: Yes Diet Tolerance:: regular diet Lochia:: Large Feeding Type:: bottle feeding Current Pain Level(1-10): 4 Review of Systems All systems reviewed & are unremarkable except as noted in HPI & below Physical Exam <Shawn White DO - Last Filed: 06/07/21 08:31> General: Alert, oriented, no acute distress Cardiac: Regular rate and rhythm, normal S1, S2. No murmurs appreciated. Respiratory: Clear to auscultation b/l with good air flow entry, symmetric chest rise and fall. No wheezes or crackles. No increased work of breathing or accessory muscle use Abdomen: Soft, nontender, nondistended. Fundus firm and palpable at _ cm below umbilicus. No guarding or rebound. Skin: No rashes or lesions Extremities: Warm, dry, well-perfused with capillary refill <2s b/l. No lower extremity edema, erythema or swelling. Negative Lillie's sign b/l. Results & Data ([facility]) <Shawn White - Last Filed: 06/07/21 08:31> Vital Signs (Past 12 Hours) Vital Signs Temp Pulse Pulse Resp BP BP Pulse Ox 06/07/21 04:20 36.7 C 81 18 122/82 98 06/07/21 00:35 37.0 C 112 H 20 137/83 98 06/07/21 00:15 117 H 18 135/75 06/07/21 00:13 117 H 135/75 06/06/21 23:59 117 H 122/71 06/06/21 23:45 117 H 18 135/75 06/06/21 23:44 120 H 123/71 06/06/21 23:29 129 H 142/73 H 06/06/21 23:15 117 H 18 136/68 06/06/21 23:14 117 H 136/68 06/06/21 23:00 117 H 18 136/68 06/06/21 22:59 104 H 147/72 H 06/06/21 22:45 105 H 18 147/70 H 06/06/21 22:44 105 H 147/70 H 06/06/21 22:30 114 H 18 149/63 H 06/06/21 22:29 114 H 149/63 H 06/06/21 22:15 142 H 18 145/69 H 06/06/21 22:14 142 H 145/69 H 06/06/21 21:59 135 H 100 06/06/21 21:54 129 H 99 06/06/21 21:50 122 H 143/73 H 06/06/21 21:49 120 H 100 06/06/21 21:44 149 H 100 06/06/21 21:39 124 H 100 06/06/21 21:36 96 H 141/67 H 06/06/21 21:34 109 H 100 06/06/21 21:32 99 H 126/57 L 06/06/21 21:30 18 06/06/21 21:29 103 H 100 06/06/21 21:25 97 H 125/70 06/06/21 21:24 101 H 100 06/06/21 21:23 88 143/69 H 06/06/21 21:21 146 H 141/73 H 06/06/21 21:19 100 H 99/55 L 99 06/06/21 21:17 85 113/58 L 06/06/21 21:15 93 H 112/56 L 06/06/21 21:14 93 H 100 06/06/21 21:13 108 H 123/70 06/06/21 21:11 104 H 128/63 06/06/21 21:09 99 H 127/69 100 06/06/21 21:07 107 H 136/77 06/06/21 21:04 110 H 100 06/06/21 20:59 108 H 100 06/06/21 20:54 104 H 137/77 100 06/06/21 20:49 98 H 100 06/06/21 20:44 95 H 98 06/06/21 20:40 36.7 C 06/06/21 20:39 95 H 100 06/06/21 20:38 97 H 137/77 06/06/21 20:34 96 H 99 06/06/21 20:29 101 H 100 <Bozena Villanueva MD, FACOG - Last Filed: 06/07/21 08:44> Co-Signing Physician Notes Resident Physician Supervision Note: I interviewed and examined the patient. Discussed with Dr. White and agree with findings and plan as documented in the note. Any exceptions or clarifications are listed here: Doing well. Monitor pressures. asymptomatic Documented By: Bozena Villanueva MD, FACOG
[2021-06-07] MEDS ORDERED: bisacodyL 5 MG TABEC PO SCH (20:00)
--- NOTE | 2021-06-08 07:01 | Obstetrical Progress Note ---
Date of Service <Shawn FyDO rober - Last Filed: 06/08/21 07:01> June 08, 2021 Assessment & Plan <Shawn WhiteDO - Last Filed: 06/08/21 07:01> (1) Encounter for care and examination after delivery: 30 yo PPD 2 s/p at 37weeks -Continue routine care; pressures have normalized. Expect D/C today. -Vitals reviewed- HDS, afebrile -A-, GBS-, Rubella immune; Rhogam on 03/31/21, Second rhogam on 06/07/21 -Encouraged ambulation, regular diet -Pain control with ibuprofen, acetaminophen PRN -Currently bottle feeding without complication -F/u in 6 weeks with OB <Cecily Mcrae MD, FACOG - Last Filed: 06/08/21 07:31> (1) Encounter for care and examination after delivery: Subjective <Shawn White DO - Last Filed: 06/08/21 07:01> Ambulation: ambulating normally Voiding: no voiding problems Passing Gas:: Yes Diet Tolerance:: regular diet Lochia:: Moderate Feeding Type:: bottle feeding Current Pain Level(1-10): 2 PPD 1 s/p . Patient seen and examined at bedside. Reports no acute overnight events. Reports bottle feeding and is currently not having any breast pain. Pt wishes to go home today if able. Review of Systems All systems reviewed & are unremarkable except as noted in HPI & below Physical Exam <Shawn White DO - Last Filed: 06/08/21 07:01> General: Alert, oriented, no acute distress Cardiac: Regular rate and rhythm, normal S1, S2. No murmurs appreciated. Respiratory: Clear to auscultation b/l with good air flow entry, symmetric chest rise and fall. No wheezes or crackles. No increased work of breathing or accessory muscle use Abdomen: Soft, nontender, nondistended. Fundus firm and palpable at 2 cm below umbilicus. No guarding or rebound. Skin: No rashes or lesions Extremities: Warm, dry, well-perfused with capillary refill <2s b/l. Trace lower extremity edema. No erythema or pain. Negative Lillie's sign b/l. Results & Data ([facility]) <Shawn White - Last Filed: 06/08/21 07:01> Vital Signs (Past 12 Hours) Vital Signs Temp Pulse Resp BP 06/07/21 23:30 36.6 C 82 18 121/77 06/07/21 20:05 36.7 C 84 18 133/79 <Cecily Mcrae MD, FACOG - Last Filed: 06/08/21 07:31> Co-Signing Physician Notes Resident Physician Supervision Note: I was present with Dr. White during the history and exam. I discussed the case with the resident and agree with the findings and plan as documented in the note. Any exceptions or clarifications are listed here: doing well, ready for d/c home, instructions reviewed. f/u 6wk pp check. normal bps. parameters to call reviewed. ff at u, has to void, nt calves. Documented By: Cecily Mcrae MD, FACOG
--- NOTE | 2021-06-08 07:33 | Obstetrical Progress Note ---
Date of Service June 08, 2021 Assessment & Plan (1) Encounter for care and examination after delivery: 30 yo PPD 2 s/p at 37weeks -Continue routine care; pressures have normalized. Expect D/C today. -Vitals reviewed- HDS, afebrile -A-, GBS-, Rubella immune; Rhogam on 03/31/21, Second rhogam on 06/07/21 -Encouraged ambulation, regular diet -Pain control with ibuprofen, acetaminophen PRN -Currently bottle feeding without complication -F/u in 6 weeks with OB Physical Exam General: Alert, oriented, no acute distress Cardiac: Regular rate and rhythm, normal S1, S2. No murmurs appreciated. Respiratory: Clear to auscultation b/l with good air flow entry, symmetric chest rise and fall. No wheezes or crackles. No increased work of breathing or accessory muscle use Abdomen: Soft, nontender, nondistended. Fundus firm and palpable at 2 cm below umbilicus. No guarding or rebound. Skin: No rashes or lesions Extremities: Warm, dry, well-perfused with capillary refill <2s b/l. Trace lower extremity edema. No erythema or pain. Negative Lillie's sign b/l. Results & Data ([facility]) Vital Signs (Past 12 Hours) Vital Signs Temp Pulse Resp BP 06/07/21 23:30 36.6 C 82 18 121/77 06/07/21 20:05 36.7 C 84 18 133/79
[2021-06-08] MEDS: DOCUSATE SODIUM 100 MG CAP PO SCH (08:07)
[2021-06-08] MEDS: PRENATAL VITAMIN 1 TAB PO SCH (08:08)
== END 2021-06-08 10:45 | disposition home or self-care (01) | DRG 807 ==
LOC: OPB 08:45 → 4S1 08:46 → 4S2 06-07 00:38